=== PATIENT | male | born 1995 | race Caucasian/White ===

== ENCOUNTER 2022-03-24 19:07 | Emergency (ER) | payer SELFPAY ==
[2022-03-24 19:16] VITALS: PULSE 98; TEMP 98.1; BMI 51.3
[2022-03-24] MEDS ORDERED: ALBUTEROL SO4 2.5/IPRATROPIUM 0.5 INH SOL 3 ML VIAL.NEB. NEB ONE ×2 (20:09→20:17)
[2022-03-24] MEDS ORDERED: AMOXICILLIN 500 MG CAPSULE (FP) PO ONE (20:51)
[2022-03-24] MEDS ORDERED: AZITHROMYCIN 250 MG TABLET PO ONE (20:51)
[2022-03-24] MEDS ORDERED: AZITHROMYCIN 250 MG TABLET ONE (21:07)
[2022-03-24] MEDS ORDERED: AMOXICILLIN 250 MG CAPSULE ONE (21:08)
[2022-03-24 21:16] VITALS: BP 155/82
== END 2022-03-24 22:22 | disposition home or self-care (01) ==
LOC: JER 19:07
PROC: 3E0F7GC Introduction of Other Therapeutic Substance into Respiratory Tract, Via Natural or Artificial Opening (ICD-10-PCS; principal; 2022-03-24)
DX: R05.9 Cough, unspecified (principal)
CPT/HCPCS: 0241U-QW; 71046-TC-FY; 99284-25